=== PATIENT | female | born 1955 | race Caucasian/White ===

== ENCOUNTER 2017-08-18 15:49 | Emergency (ER) | payer OTHER ==
[~2017-08-18] VITALS: Ht 160 cm; Wt 59.0 kg
[2017-08-18 15:54] VITALS: BP 126/76; PULSE 69; RESP 20; O2SAT 98
[2017-08-18 16:02] VITALS: O2SAT 98
[2017-08-18] MEDS ORDERED: CALCCHW25 CHEW (16:09)
[2017-08-18 16:23] LABS: AUTOMATED NEUTROPHIL # 8.2 TH/MM3 (1.8-7.7); BASOPHIL # 0.1 TH/MM3 (0-0.2); BASOPHIL % 0.5 % (0.0-2.0); EOSINOPHIL # 0.1 TH/MM3 (0-0.4); EOSINOPHIL % 0.5 % (0.0-4.0); HEMATOCRIT 41.4 % (35.0-46.0); HEMOGLOBIN 13.9 GM/DL (11.6-15.3); LYMPH % 15.1 % (9.0-44.0); LYMPHOCYTE # 1.6 TH/MM3 (1.0-4.8); MEAN CELL VOLUME 88.7 FL (80.0-100.0); MEAN CORPUSCULAR HEMOGLOBIN 29.8 PG (27.0-34.0); MEAN CORPUSCULAR HGB CONC 33.6 % (32.0-36.0); MEAN PLATELET VOLUME 8.2 FL (7.0-11.0); MONO % 5.1 % (0.0-8.0); MONOCYTE # 0.5 TH/MM3 (0-0.9); NEUT % 78.8 % (16.0-70.0); PLATELET COUNT 229 TH/MM3 (150-450); RED BLOOD COUNT 4.66 MIL/MM3 (4.00-5.30); RED CELL DISTRIBUTION WIDTH 13.4 % (11.6-17.2); WHITE BLOOD COUNT 10.5 TH/MM3 (4.0-11.0)
[2017-08-18 16:29] LABS: BILIRUBIN, URINE NEG (NEG); BLOOD, URINE NEG (NEG); GLUCOSE,URINE NEG (NEG); KETONE, URINE NEG (NEG); NITRITE,URINE NEG (NEG); PH, URINE 5.5 (5.0-8.5); URINE COLOR YELLOW (YELLW/STRAW); URINE LEUKOCYTE ESTERASE NEG (NEG)
[2017-08-18 16:32] LABS: CHLORIDE 108 MEQ/L (98-107); SODIUM (NA) 139 MEQ/L (136-145)
[2017-08-18 16:35] LABS: ALBUMIN 3.7 GM/DL (3.4-5.0); BICARBONATE 21.6 MEQ/L (21.0-32.0); CALCIUM 8.6 MG/DL (8.5-10.1); GLUCOSE,RANDOM 144 MG/DL (74-106)
--- NOTE | 2017-08-18 16:35 | PD ---
HPI Chief Complaint: Abdominal Pain Time Seen by Provider: 16:12 Travel History International Travel<30 days: No Contact w/Intl Traveler<30days: No Traveled to known affect area: No History of Present Illness HPI Patient 61-year-old female presents emergency department after presyncopal event while eating at a local restaurant. Patient states that she started having some abdominal cramping while eating in the left lower quadrant when she stood up she felt very weak like she was going to pass out. EMS reported that she was very anxious on scene and did not actually pass out, blood sugar on scene was normal. She does not have diabetes no chest pain or shortness of breath abdominal pain no history of heart disease lung disease. States symptoms are currently localized her left lower abdomen, associated with some nausea without vomiting. Later in her ER course she also endorses some nonbloody nonbilious diarrhea. She states that she did not actually have anything to eat today and had not eaten since breakfast in which case she had scrambled eggs. No other sick contacts, no fevers. She states she did not actually pass out and she is not feeling like she is going to pass out now. PFSH Past Medical History Medical History: Denies Significant Hx Diminished Hearing: No Tetanus Vaccination: > 5 Years Influenza Vaccination: No ?: Not Past Surgical History Eye Surgery: Yes (cataracts, bilateral implants) Hysterectomy: Yes Joint Replacement: Yes (lt hip) Other Surgery: Yes (mega carpal tunnel) Social History Alcohol Use: Yes (social) Tobacco Use: No Substance Use: No Allergies-Medications (Allergen,Severity, Reaction): Coded Allergies: Penicillins (Verified Allergy, Severe, 08/18/17) throat swells, hives Reported Meds & Prescriptions Reported Meds & Active Scripts Active Zofran (Ondansetron HCl) 4 Mg Tab 4 Mg PO Q6HR PRN Reported Calcium + D & K (Calcium-Vitamins D & K) 500-1,000-40 Mg-Unit-Mcg Chew 1 Tab CHEW Review of Systems Except as stated in HPI: all other systems reviewed are Neg Physical Exam Narrative GENERAL: Well-developed well-nourished, appears anxious. SKIN: Focused skin assessment warm/dry. HEAD: Atraumatic. Normocephalic. EYES: Pupils equal and round. No scleral icterus. No injection or drainage. ENT: No nasal bleeding or discharge. Mucous membranes pink and moist. NECK: Trachea midline. No JVD. CARDIOVASCULAR: Regular rate and rhythm. No murmur appreciated. RESPIRATORY: No accessory muscle use. Clear to auscultation. Breath sounds equal bilaterally. GASTROINTESTINAL: Abdomen soft, non-tender, nondistended. Hepatic and splenic margins not palpable. Minimally tender in the left lower quadrant, voluntary guarding, no rebound no percussive tenderness. Bowel sounds normoactive. No CVA tenderness. MUSCULOSKELETAL: No obvious deformities. No clubbing. No cyanosis. No edema. NEUROLOGICAL: Awake and alert. No obvious cranial nerve deficits. Motor grossly within normal limits. Normal speech. PSYCHIATRIC: Appropriate mood and affect; insight and judgment normal. Data Data Last Documented VS Vital Signs Date Time Temp Pulse Resp B/P (MAP) Pulse Ox O2 Delivery O2 Flow Rate FiO2 08/18/17 20:14 08/18/17 18:50 80 20 99 Room Air Orders Orders Electrocardiogram (08/18/17 15:57) Complete Blood Count With Diff (08/18/17 15:57) Comprehensive Metabolic Panel (08/18/17 15:57) B-Type Natriuretic Peptide (08/18/17 15:57) Troponin I (08/18/17 15:57) Act Partial Throm Time (Ptt) (08/18/17 15:57) Prothrombin Time / Inr (Pt) (08/18/17 15:57) Urinalysis - C+S If Indicated (08/18/17 15:57) Chest, Single Ap (08/18/17 15:57) Ecg Monitoring (08/18/17 15:57) Iv Access Insert/Monitor (08/18/17 15:57) Oximetry (08/18/17 15:57) Lipase (08/18/17 16:34) Morphine Inj (Morphine Inj) (08/18/17 16:45) Ondansetron Inj (Zofran Inj) (08/18/17 16:45) Oral Contrast - Adult (08/18/17 16:46) Diet Npo (08/18/17 Dinner) Diatrizoate Liq ( Gastroview Liq) (08/18/17 17:14) Diatrizoate Liq ( Gastromarcie Liq) (08/18/17 17:15) Ct Abd/Pel W Iv Contrast(Rout) (08/18/17 17:18) Iohexol 350 Inj (Omnipaque 350 Inj) (08/18/17 18:06) Ed Discharge Order (08/18/17 19:35) Labs Laboratory Tests Test 08/18/17 16:00 08/18/17 16:06 08/18/17 16:47 Urine Color YELLOW Urine Turbidity CLEAR Urine pH 5.5 Urine Specific [place] 1.020 Urine Protein NEG mg/dL Urine Glucose (UA) NEG mg/dL Urine Ketones NEG mg/dL Urine Occult Blood NEG Urine Nitrite NEG Urine Bilirubin NEG Urine Urobilinogen 0.2 MG/DL Urine Leukocyte Esterase NEG Urine WBC 0-2 /hpf Urine Squamous Epithelial Cells 0-5 /hpf Urine Bacteria FEW /hpf Microscopic Urinalysis Comment CULT NOT INDICATED White Blood Count 10.5 TH/MM3 Red Blood Count 4.66 MIL/MM3 Hemoglobin 13.9 GM/DL Hematocrit 41.4 % Mean Corpuscular Volume 88.7 FL Mean Corpuscular Hemoglobin 29.8 PG Mean Corpuscular Hemoglobin Concent 33.6 % Red Cell Distribution Width 13.4 % Platelet Count 229 TH/MM3 Mean Platelet Volume 8.2 FL Neutrophils (%) (Auto) 78.8 % Lymphocytes (%) (Auto) 15.1 % Monocytes (%) (Auto) 5.1 % Eosinophils (%) (Auto) 0.5 % Basophils (%) (Auto) 0.5 % Neutrophils # (Auto) 8.2 TH/MM3 Lymphocytes # (Auto) 1.6 TH/MM3 Monocytes # (Auto) 0.5 TH/MM3 Eosinophils # (Auto) 0.1 TH/MM3 Basophils # (Auto) 0.1 TH/MM3 CBC Comment DIFF FINAL Differential Comment Prothrombin Time 10.6 SEC Prothromb Time International Ratio 1.0 RATIO Activated Partial Thromboplast Time 20.5 SEC Blood Urea Nitrogen 21 MG/DL Creatinine 0.98 MG/DL Random Glucose 144 MG/DL Total Protein 7.6 GM/DL Albumin 3.7 GM/DL Calcium Level 8.6 MG/DL Alkaline Phosphatase 93 U/L Aspartate Amino Transf (AST/SGOT) 14 U/L Alanine Aminotransferase (ALT/SGPT) 20 U/L Total Bilirubin 0.4 MG/DL Sodium Level 139 MEQ/L Potassium Level 3.6 MEQ/L Chloride Level 108 MEQ/L Carbon Dioxide Level 21.6 MEQ/L Anion Gap 9 MEQ/L Estimat Glomerular Filtration Rate 58 ML/MIN Troponin I LESS THAN 0.02 NG/ML B-Type Natriuretic Peptide 25 PG/ML Lipase 169 U/L [facility] Medical Decision Making Medical Screen Exam Complete: Yes Emergency Medical Condition: Yes Differential Diagnosis Gastritis, gastroneuritis, presyncope, arrhythmia unlikely, ACS unlikely, NV unlikely. Narrative Course Patient was roomed in the emergency department, abdomen with voluntary guarding and given that the pain was severe enough to make her feel like she was in a pass out at the CAT scan is indicated. She is now having nausea and diarrhea had one episode of dry heaves which relieved with Zofran. She was given normal saline. Last 24 hours Impressions Abdomen/Pelvis CT 08/18/17 1718 Signed Impressions: Service Date/Time: Friday, August 18, 2017 18:02 - CONCLUSION: 1. Mild constipation. No acute findings in abdomen and pelvic CT. Previous left hip replacement. Harsha Hitchcock MD Chest X-Ray 08/18/17 1557 Signed Impressions: Service Date/Time: Friday, August 18, 2017 16:57 - CONCLUSION: No acute disease. Yared Coleman MD EKG basic labs troponin reassuring. The patient on reassessment after medications is feeling much better. I discussed with her that is quite possible that she has a foodborne illness, she is very low risk features for syncope and I think she is stable for discharge for outpatient management and workup. Discussed symptomatic management push p.o. hydration and return to ED criteria. Discussed follow-up with the primary care physician. Diagnosis Primary Impression: Nausea vomiting and diarrhea Additional Impressions: Abdominal cramping Pre-syncope Referrals: [facility] Med/Other Pt SpecificInfo: Prescription(s) given Scripts Ondansetron (Zofran) 4 Mg Tab 4 MG PO Q6HR Y for NAUSEA OR VOMITING, #20 TAB 0 Refills Prov: Dimas Doyle MD 08/18/17 Disposition: 01 DISCHARGE HOME Condition: Stable Dimas Doyle MD Aug 18, 2017 16:35
[2017-08-18 16:36] LABS: BLOOD UREA NITROGEN 21 MG/DL (7-18)
[2017-08-18 16:38] LABS: ALT (GPT) 20 U/L (10-53)
[2017-08-18 16:39] LABS: AST (GOT) 14 U/L (15-37); CREATININE 0.98 MG/DL (0.50-1.00); GLOMERULAR FILTRATION RATE 58 ML/MIN (>89)
[2017-08-18 16:40] LABS: TOTAL BILIRUBIN ADULT 0.4 MG/DL (0.2-1.0); TOTAL PROTEIN 7.6 GM/DL (6.4-8.2)
[2017-08-18 16:41] LABS: ALKALINE PHOSPHATASE 93 U/L (45-117)
[2017-08-18 16:42] LABS: PROTHROMBIN TIME - PATIENT 10.6 SEC (9.8-11.6)
[2017-08-18 16:43] LABS: TROPONIN I LESS THAN 0.02 NG/ML (0.02-0.05)
[2017-08-18 16:45] LABS: SQUAMOUS EPITHELIAL CELL URINE 0-5 /hpf (0-5); WBC, URINE 0-2 /hpf (0-5)
[2017-08-18] MEDS ORDERED: ONDANSETRON HCL 4 MG/2 ML VIAL IV PUSH ONE (16:45)
[2017-08-18] MEDS ORDERED: MORPHINE SULFATE 2 MG/ML INJ IV PUSH ONE (16:45)
[2017-08-18 16:46] LABS: BACTERIA, URINE FEW /hpf
[2017-08-18] MEDS ORDERED: DIATRIZOATE MEGLUM/DIATRIZOATE SOD 9 ML CUP ONE ×2 (17:14→17:15)
--- NOTE | 2017-08-18 17:19 | RADRPT ---
EXAM DATE/TIME: 08/18/2017 16:57 [facility] COMPARISON: No previous studies available for comparison. INDICATIONS : Syncope, nausea, weak, MEDICAL HISTORY : None. SURGICAL HISTORY : None. ENCOUNTER: Initial ACUITY: 1 day PAIN SCORE: 0/10 LOCATION: Bilateral chest FINDINGS: A single view of the chest demonstrates the lungs to be symmetrically aerated without evidence of mas s, infiltrate or effusion. The cardiomediastinal contours are unremarkable. Osseous structures are intact. CONCLUSION: No acute disease. Yared Coleman MD on August 18, 2017 at 17:17 Board Certified Radiologist. This report was verified electronically.
[2017-08-18 17:30] VITALS: BP 120/72; PULSE 82; RESP 20; O2SAT 99
[2017-08-18] MEDS ORDERED: IOHEXOL 350 MG/ML 10 ML VIAL (for RAD DIAG) IVCONTRAST ONE (18:06)
--- NOTE | 2017-08-18 18:43 | RADRPT ---
EXAM DATE/TIME: 08/18/2017 18:02 [facility] COMPARISON: No previous studies available for comparison. INDICATIONS : Lower abdominal pain. IV CONTRAST: 90 cc Omnipaque 350 (iohexol) IV ORAL CONTRAST: No oral contrast ingested. RADIATION DOSE: 6.08 CTDIvol (mGy) MEDICAL HISTORY : None SURGICAL HISTORY : Hysterectomy. Left hip surgery. ENCOUNTER: Initial ACUITY: 1 day PAIN SCALE: 5/10 LOCATION: lower quadrant TECHNIQUE: Volumetric scanning of the abdomen and pelvis was performed. Using automated exposure control and ad justment of the mA and/or kV according to patient size, radiation dose was kept as low as reasonably achievable to obtain optimal diagnostic quality images. DICOM format image data is available electro nically for review and comparison. FINDINGS: Atelectasis at the lung bases. No acute findings in the liver, spleen, adrenals, kidneys or pancreas. No free fluid. No bowel obstruction. No adenopathy. Previous left hip replacement. There is mild constipation. CONCLUSION: 1. Mild constipation. No acute findings in abdomen and pelvic CT. Previous left hip replacement. Harsha Hitchcock MD on August 18, 2017 at 18:37 Board Certified Radiologist. This report was verified electronically.
[2017-08-18 18:50] VITALS: BP 112/71; PULSE 80; RESP 20; O2SAT 99
[2017-08-18] MEDS ORDERED: ZOFR4TAB PO (19:34)
--- NOTE | 2017-08-19 13:36 | EKG ---
Date Performed: 08/18/2017 Time Performed: 16:09:08 PTAGE: 61 years EKG: Sinus rhythm WITH SINUS ARRHYTHMIA BORDERLINE LEFT AXIS DEVIATION BORDERLINE ECG NO PREVIOUS TRACING DOCTOR: Bret Mcmanus Interpretating Date/Time 08/19/2017 13:33:57
== END 2017-08-18 20:28 | disposition home or self-care (01) ==
LOC: PHED 15:49
DX: R11.2 Nausea with vomiting, unspecified (principal); R19.7 Diarrhea, unspecified; R10.9 Unspecified abdominal pain; R55 Syncope and collapse; R94.31 Abnormal electrocardiogram [ECG] [EKG]
CPT/HCPCS: 71045; 74177; 80053; 81001; 83690; 83880; 84484; 85025; 85610; 85730; 93005; 96374; 96375; 99285; J2270; J2405; Q9963; Q9967